=== PATIENT | female | born 1935 | race Caucasian/White ===

== ENCOUNTER 2021-03-03 09:21 | Emergency (ER) | payer OTHER ==
[~2021-03-03] VITALS: Ht 157.5 cm; Wt 63.5 kg
[~2021-03-03 09:21] MED LIST: LEVOTHYROXINE0.05 MG PO; METFORMIN HCL500 MG; NORVASC 5 MG TAB5 MG PO; OXYBUTYNIN 5 MG5 M2; VITAMIN D400 UNI1 PO; ZOCOR40 MG PO
[2021-03-03] MEDS ORDERED: MAGNESIUM250 M1 PO (09:29)
[2021-03-03 10:03] LABS: ABSOLUTE BASOPHILS 0.1 thou/uL (0.0-0.2); ABSOLUTE LYMPHOCYTES 2.8 thou/uL (0.8-5.3); ABSOLUTE MONOCYTES 0.5 thou/uL (0.0-1.2); ABSOLUTE NEUTROPHILS 4.8 thou/uL (1.6-8.1); BASOPHILS 1.1 %; EOSINOPHILS 0.4 %; HEMATOCRIT 39.8 % (37.0-47.0); HEMOGLOBIN 13.3 gm/dL (12.0-15.0); LYMPHOCYTES 33.8 %; MCH 27.9 pg (26.0-34.0); MCHC 33.3 g/dL (28.0-37.0); MCV 83.7 fL (80.0-100.0); MONOCYTES 5.8 %; MPV 7.8 fl. (7.2-11.1); NUCLEATED RBCS 0 /100WBC; PLATELET COUNT* 236 thou/uL (150-400); POLYS 58.9 %; RBC 4.76 mil/uL (4.20-5.00); RDW-CV 14.3 % (10.5-14.5); WBC 8.2 thou/uL (4.0-11.0)
[2021-03-03 10:11] LABS: CALCIUM 9.3 mg/dL (8.5-10.1); CREATININE 0.9 mg/dL (0.6-1.3)
[2021-03-03 10:22] LABS: ALBUMIN 3.9 g/dL (3.4-5.0); MAGNESIUM 2.3 mg/dL (1.8-2.4); TOTAL BILIRUBIN 0.3 mg/dL (<0.1-1.0); TOTAL PROTEIN 7.4 g/dL (6.4-8.2)
[2021-03-03 11:01] VITALS: BP 161/70
--- NOTE | 2021-03-04 10:39 | EKG ---
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 03/04/21 1039 0929 Valente Avendano MD, [facility] /EPI
== END 2021-03-03 11:01 | disposition home or self-care (01) ==
LOC: M.ERS 09:21
PROVIDERS: Family Medicine
DX: R00.2 Palpitations (principal); I10 Essential (primary) hypertension; E11.9 Type 2 diabetes mellitus without complications; Z88.5 Allergy status to narcotic agent; Z90.710 Acquired absence of both cervix and uterus

== ENCOUNTER 2021-05-14 16:17 | Emergency (ER) | payer OTHER ==
[~2021-05-14] VITALS: Ht 162.6 cm; Wt 61.2 kg
[~2021-05-14 16:17] MED LIST changes: +MAGNESIUM250 M1 PO
[2021-05-14 17:07] VITALS: BP 132/70
== END 2021-05-14 17:15 | disposition home or self-care (01) ==
LOC: M.ERS 16:17
DX: Z20.822 Contact with and (suspected) exposure to COVID-19 (principal); I10 Essential (primary) hypertension; E11.9 Type 2 diabetes mellitus without complications; Z95.0 Presence of cardiac pacemaker; Z88.5 Allergy status to narcotic agent